=== PATIENT | female | born 1995 | race Caucasian/White ===

== ENCOUNTER 2021-10-22 23:32 | Emergency (ER) | payer MEDICAID ==
[~2021-10-22] VITALS: Ht 152.4 cm; Wt 84.1 kg
[2021-10-23] MEDS ORDERED: LIDOCAINE 1%/EPI 1:100,000 20 ML VIAL. INJ ONE
--- NOTE | 2021-10-23 00:38 | PHYS DOC ---
Adult General Chief Complaint Chief Complaint: LACERATION/AVULSION HPI HPI Patient is a 26 year old female with a lip laceration. Patient states that she excellently opened covered into her lip and cut it. She did not sustain any other injuries and denies headache or loss of consciousness. She does not have any loose teeth nor chipped teeth. Last tetanus was 3 years ago. No other injuries or complaints. Review of Systems Review of Systems Constitutional: Denies fever Eyes: Denies change in visual acuity or eye pain HENT: Denies sore throat Respiratory: Denies shortness of breath Cardiovascular: Denies chest pain GI: Denies abd pain : Denies dysuria Musculoskeletal: Denies back or extremity injury Integument: Denies rash or skin lesions Neurologic: Denies headache, focal weakness or sensory changes All other systems were reviewed and found to be within normal limits, except as documented in this note. Current Medications Current Medications Current Medications Medications (Trade) Dose Ordered Sig/Cleopatra Start Time Stop Time Status Last Admin Dose Admin Lidocaine/ Epinephrine (LIDOCAINE 1%-EPI 1:100,000 Multi-Dose) 20 ml 1X ONCE 10/23/21 00:00 10/23/21 00:15 DC 10/23/21 00:10 20 ML Allergies Allergies Allergies Coded Allergies Type Severity Reaction Last Updated Verified cefaclor Allergy Mild Hives 10/23/21 Yes cefixime Allergy Mild Hives 10/23/21 Yes clarithromycin Allergy Mild Hives 10/23/21 Yes Physical Exam Physical Exam Constitutional: Well developed, well nourished, no acute distress, non-toxic appearance. HENT: Normocephalic, atraumatic, bilateral external ears normal, mucosa moist, nose normal. Eyes: EOMI, conjunctiva normal, no discharge. Neck: Normal range of motion, supple, no stridor, no meningeal signs. Cardiovascular: Regular rate and rhythm Lungs & Thorax: Bilateral breath sounds clear to auscultation Abdomen: Soft, no tenderness or obvious masses Skin: Warm, dry, no erythema, no rash, 1/2 cm laceration crossing the vermilion border on the right upper lip Extremities: No tenderness, no cyanosis, no clubbing, ROM intact, no edema. Neurologic: Alert and oriented, normal motor function, normal sensory function, no focal deficits noted. Psychologic: Affect normal, judgement normal, mood normal. Current Patient Data Lab Values Laboratory Tests Test 10/23/21 00:06 POC Urine HCG, Qualitative Hcg negative (Negative) EKG EKG [] Radiology/Procedures Radiology/Procedures [] Course & Med Decision Making Course & Med Decision Making Pertinent Labs and Imaging studies reviewed. (See chart for details) [] This 26-year-old female the lip laceration. This was closed. Patient is to have the stitches out in 5 days, she is stable for discharge. Procedure note: Patient was prepped in a sterile fashion and anesthetized using about 1 half cc of 1% lidocaine with epinephrine. Wound and skin were cleansed and then a total of five 5-0 nylon sutures were used providing good skin approximation. Patient tolerated this well, no complications. Dragon Disclaimer Dragon Disclaimer This electronic medical record was generated, in whole or in part, using a voice recognition dictation system. Departure Departure Impression: Primary Impression: Lip laceration Disposition: HOME / SELF CARE / HOMELESS Condition: STABLE Referrals: NO PCP (PCP) Patient Instructions: Facial Laceration Additional Instructions: Sutures out in 5 days KENDRA MERRITT MD Oct 23, 2021 00:37
[2021-10-23 00:57] VITALS: BP 119/62
== END 2021-10-23 00:58 | disposition home or self-care (01) ==
LOC: ER 23:32
DX: S01.511A Laceration without foreign body of lip, initial encounter (principal); Z88.1 Allergy status to other antibiotic agents; Z88.8 Allergy status to other drugs, medicaments and biological substances; Y28.8XXA Contact with other sharp object, undetermined intent, initial encounter; Y93.89 Activity, other specified; Y92.89 Other specified places as the place of occurrence of the external cause; Y99.8 Other external cause status
CPT/HCPCS: 12011; 81025; 99284; J3490

== ENCOUNTER → 2021-12-12 | Outpatient (CLI) | payer MEDICAID ==
--- NOTE | 2021-12-12 14:34 | KCIC ---
XR SHOULDER_RIGHT 2+ VIEWS DATE: 12/12/2021 12:35 PM INDICATION: Rt shoulder pain, decreased ROM, joint pain. / Spl. Instructions: Pt in recent altercati on. / History: COMPARISON: None. FINDINGS: Bones: There is no evidence of acute fracture or dislocation. Joints: The joint spaces are normal. The acromiohumeral distance is not narrowed. Miscellaneous: No abnormal soft tissue calcifications in the shoulder. IMPRESSION: No evidence of acute fracture. Electronically signed by: Alex Pollock MD (12/12/2021 2:32 PM) [id number]
== END ==
LOC: KCIC 12:32
PROVIDERS: ATTEND Family Medicine
DX: M25.511 Pain in right shoulder (principal)
CPT/HCPCS: 73030